=== PATIENT | male | born 1980 | race Caucasian/White ===

== ENCOUNTER 2017-12-11 12:26 | Inpatient (IN) | payer BC, OTHER ==
[~2017-12-11] VITALS: Ht 180.3 cm; Wt 113.7 kg
[~2017-12-11 12:26] MED LIST: DOXY100T PO; LORT5TAB PO
[2017-12-11 12:30] VITALS: BP 152/81; PULSE 120; RESP 18; TEMP 101.2; O2SAT 94
[2017-12-11] MEDS ORDERED: AZITHROMYCIN INJ 500 MG in SODIUM CHLOR 0.9% 250 ML INJ 250 ML IV STA (12:41)
[2017-12-11] MEDS ORDERED: cefTRIAXone INJ 2,000 MG in SODIUM CHLORIDE 0.9% INJ 100 ML IV STA (12:41)
[2017-12-11] MEDS ORDERED: RESP: ALBUTEROL 2.5 MG/IPRATROPIUM 0.5 MG NEB (SCH) NEB ONE (12:45)
[2017-12-11] MEDS ORDERED: SODIUM CHLOR 0.9% 1000 ML INJ 1,000 ML IV ONE ×2 (12:45)
[2017-12-11] MEDS ORDERED: ACETAMINOPHEN 500 MG CPLT PO ONE (12:45)
--- NOTE | 2017-12-11 12:48 | PD ---
HPI Chief Complaint: Cold / Flu Symptoms Time Seen by Provider: 12:35 Travel History International Travel<30 days: No Contact w/Intl Traveler<30days: No Traveled to known affect area: No History of Present Illness HPI This 37-year-old male is complaining of cough and congestion. He has been sick for over a week. Last Saturday he went to urgent care center and was told that he likely had the flu. He was given prescription for Tamiflu which he started taking on Saturday. He is finished. He is continued to cough and has been having fever. He is to get better initially but feeling worse. He is short of breath at times she has been coughing up a lot of phlegm and occasional blood. He smokes about a pack a week. He has no history of asthma. He is on no other medications. COUNT INCLUDES THE [facility] Past Medical History Respiratory: Yes (SLEEP APNEA - USES C-PAP QHS) Social History Alcohol Use: Yes (WEEKENDS) Tobacco Use: Yes (3-4 WEEK) Substance Use: No Allergies-Medications (Allergen,Severity, Reaction): Coded Allergies: amoxicillin (Unverified Allergy, Intermediate, RASH, 12/11/17) Reported Meds & Prescriptions Reported Meds & Active Scripts Active Lortab 5/500 (Acetaminophen/Hydrocodone Bitart) 5 Mg/500 Mg Tab 1-2 Tab PO Q6HPRN FOR PAIN Vibramycin (Doxycycline Hyclate) 100 Mg Cap 100 Mg PO BID Review of Systems General / Constitutional: Positive: Fever, Chills Eyes: No: Diploplia, Blurred Vision HENT: No: Headaches Cardiovascular: No: Chest Pain or Discomfort Respiratory: Positive: Cough, Shortness of Breath, Hemoptysis Gastrointestinal: No: Nausea, Vomiting Genitourinary: No: Urgency, Frequency Musculoskeletal: Positive: Myalgias Skin: No Rash, No Itching Neurologic: Positive: Weakness Psychiatric: No: Anxiety Endocrine: No: Heat Intolerance, Cold Intolerance Hematologic/Lymphatic: No: Easy Bruising Physical Exam Narrative GENERAL: Well-developed male. Temp is 101.2. Pulse rate 120. O2 sat 93%. SKIN: Focused skin assessment warm/dry. HEAD: Atraumatic. Normocephalic. EYES: Pupils equal and round. No scleral icterus. No injection or drainage. ENT: No nasal bleeding or discharge. Mucous membranes pink and moist. NECK: Trachea midline. No JVD. CARDIOVASCULAR: Regular rate and rhythm. No murmur appreciated. RESPIRATORY: There are rales at both bases. Occasional wheeze GASTROINTESTINAL: Abdomen soft, non-tender, nondistended. Hepatic and splenic margins not palpable. MUSCULOSKELETAL: No obvious deformities. No clubbing. No cyanosis. No edema. NEUROLOGICAL: Awake and alert. No obvious cranial nerve deficits. Motor grossly within normal limits. Normal speech. PSYCHIATRIC: Appropriate mood and affect; insight and judgment normal. Data Data Last Documented VS Vital Signs Date Time Temp Pulse Resp B/P (MAP) Pulse Ox O2 Delivery O2 Flow Rate FiO2 12/11/17 13:42 110 129/70 (89) 95 12/11/17 12:30 101.2 18 Orders Orders Sepsis Workup Initiated (12/11/17 ) Complete Blood Count With Diff (12/11/17 12:41) Comprehensive Metabolic Panel (12/11/17 12:41) Lactic Acid Sepsis Protocol (12/11/17 12:41) Urinalysis - C+S If Indicated (12/11/17 12:41) Blood Culture (12/11/17 12:41) Chest, Single Ap (12/11/17 12:41) Blood Glucose (12/11/17 12:41) Ecg Monitoring (12/11/17 12:41) Iv Access Insert/Monitor (12/11/17 12:41) Oximetry (12/11/17 12:41) Oxygen Administration (12/11/17 12:41) Ceftriaxone Inj (Rocephin Inj) (12/11/17 12:41) Azithromycin Inj (Zithromax Inj) (12/11/17 12:41) Acetaminophen (Tylenol) (12/11/17 12:45) Sodium Chlor 0.9% 1000 Ml Inj (Ns 1000 M (12/11/17 12:45) Sodium Chlor 0.9% 1000 Ml Inj (Ns 1000 M (12/11/17 12:45) Albuterol-Ipratropium Neb (Duoneb Neb) (12/11/17 12:45) Labs Laboratory Tests Test 12/11/17 13:00 White Blood Count 7.9 TH/MM3 Red Blood Count 4.23 MIL/MM3 Hemoglobin 12.7 GM/DL Hematocrit 37.5 % Mean Corpuscular Volume 88.5 FL Mean Corpuscular Hemoglobin 30.1 PG Mean Corpuscular Hemoglobin Concent 34.0 % Red Cell Distribution Width 12.1 % Platelet Count 112 TH/MM3 Mean Platelet Volume 9.4 FL Neutrophils (%) (Auto) 87.8 % Lymphocytes (%) (Auto) 5.7 % Monocytes (%) (Auto) 4.6 % Eosinophils (%) (Auto) 0.2 % Basophils (%) (Auto) 1.7 % Neutrophils # (Auto) 6.9 TH/MM3 Lymphocytes # (Auto) 0.5 TH/MM3 Monocytes # (Auto) 0.4 TH/MM3 Eosinophils # (Auto) 0.0 TH/MM3 Basophils # (Auto) 0.1 TH/MM3 CBC Comment DIFF FINAL Differential Comment Blood Urea Nitrogen 15 MG/DL Creatinine 1.10 MG/DL Random Glucose 117 MG/DL Total Protein 7.6 GM/DL Albumin 2.7 GM/DL Calcium Level 8.7 MG/DL Alkaline Phosphatase 82 U/L Aspartate Amino Transf (AST/SGOT) 87 U/L Alanine Aminotransferase (ALT/SGPT) 98 U/L Total Bilirubin 1.0 MG/DL Sodium Level 129 MEQ/L Potassium Level 3.9 MEQ/L Chloride Level 96 MEQ/L Carbon Dioxide Level 21.3 MEQ/L Anion Gap 12 MEQ/L Estimat Glomerular Filtration Rate 75 ML/MIN Lactic Acid Level 1.1 mmol/L MDM Medical Decision Making Medical Screen Exam Complete: Yes Emergency Medical Condition: Yes Medical Record Reviewed: Yes Differential Diagnosis Differential includes pneumonia, sepsis, Narrative Course Chest x-ray shows bilateral patchy areas of infiltrate. There are no focal areas of consolidation. Hemoglobin is 12.2 with a white count of 7.7. His serum sodium is 129. O2 sat is 93%. He was given a nebulizer treatment and reports feeling much better after this. His wheezing has improved. Sepsis Criteria SIRS Criteria (2 or more): Temp > 100.9 or < 96.8, Heart rate over 90 Sepsis Criteria (SIRS+source): Infect source susp/known Criteria Outcome: Meets sepsis criteria Diagnosis Primary Impression: Pneumonia Additional Impression: Sepsis Seferino Anderson MD Dec 11, 2017 12:48
[2017-12-11 13:11] VITALS: O2SAT 94
[2017-12-11 13:19] LABS: AUTOMATED NEUTROPHIL # 6.9 TH/MM3 (1.8-7.7); BASOPHIL # 0.1 TH/MM3 (0-0.2); BASOPHIL % 1.7 % (0.0-2.0); EOSINOPHIL % 0.2 % (0.0-4.0); HEMATOCRIT 37.5 % (39.0-51.0); HEMOGLOBIN 12.7 GM/DL (13.0-17.0); LYMPH % 5.7 % (9.0-44.0); LYMPHOCYTE # 0.5 TH/MM3 (1.0-4.8); MEAN CELL VOLUME 88.5 FL (80.0-100.0); MEAN CORPUSCULAR HEMOGLOBIN 30.1 PG (27.0-34.0); MEAN PLATELET VOLUME 9.4 FL (7.0-11.0); MONO % 4.6 % (0.0-8.0); MONOCYTE # 0.4 TH/MM3 (0-0.9); NEUT % 87.8 % (16.0-70.0); PLATELET COUNT 112 TH/MM3 (150-450); RED BLOOD COUNT 4.23 MIL/MM3 (4.50-5.90); RED CELL DISTRIBUTION WIDTH 12.1 % (11.6-17.2); WHITE BLOOD COUNT 7.9 TH/MM3 (4.0-11.0)
[2017-12-11 13:27] LABS: CHLORIDE 96 MEQ/L (98-107); SODIUM (NA) 129 MEQ/L (136-145)
[2017-12-11 13:31] LABS: ALBUMIN 2.7 GM/DL (3.4-5.0); BICARBONATE 21.3 MEQ/L (21.0-32.0); CALCIUM 8.7 MG/DL (8.5-10.1); GLUCOSE,RANDOM 117 MG/DL (74-106)
[2017-12-11 13:32] LABS: BLOOD UREA NITROGEN 15 MG/DL (7-18)
[2017-12-11 13:34] LABS: ALT (GPT) 98 U/L (12-78); AST (GOT) 87 U/L (15-37)
[2017-12-11 13:35] LABS: GLOMERULAR FILTRATION RATE 75 ML/MIN (>89)
[2017-12-11 13:36] LABS: TOTAL PROTEIN 7.6 GM/DL (6.4-8.2)
[2017-12-11 13:37] LABS: ALKALINE PHOSPHATASE 82 U/L (45-117)
--- NOTE | 2017-12-11 13:38 | RADRPT ---
EXAM DATE/TIME: 12/11/2017 13:16 [facility] COMPARISON: No previous studies available for comparison. INDICATIONS : Cough MEDICAL HISTORY : None. SURGICAL HISTORY : None. ENCOUNTER: Initial ACUITY: 2 days PAIN SCORE: 0/10 LOCATION: Bilateral chest FINDINGS: There are bilateral patchy areas of non-consolidative infiltrate involving the mid and upper lungs bi laterally and the right lower lung. The largest area of opacity is in the left upper lung. No focal areas of consolidation. Both hemidiaphragms and both heart borders are well delineated. CONCLUSION: Multifocal bilateral non-consolidative air space infiltrates. Hunter Ordonez MD on December 11, 2017 at 13:35 Board Certified Radiologist. This report was verified electronically.
[2017-12-11 13:42] VITALS: BP 129/70; PULSE 110; TEMP 100.2; O2SAT 95
[2017-12-11] MEDS ORDERED: BISACODYL 10 MG SUPP RECTAL PRN (14:00)
[2017-12-11] MEDS ORDERED: SODIUM CHLORIDE 0.9% FLUSH 10 ML FLUSH IV FLUSH PRN (14:00)
[2017-12-11] MEDS ORDERED: MAGNESIUM HYDROXIDE SUSP 30 ML CUP PO PRN (14:00)
[2017-12-11] MEDS ORDERED: NALOXONE HCL 0.4 MG/ML AMP IV PUSH PRN (14:00)
[2017-12-11] MEDS ORDERED: SENNOSIDES 8.6 MG TAB PO PRN (14:00)
[2017-12-11] MEDS ORDERED: ONDANSETRON HCL 4 MG/2 ML VIAL IVP PRN (14:00)
[2017-12-11 14:46] VITALS: O2SAT 95
--- NOTE | 2017-12-11 14:49 | HHI.HP ---
HPI Service [facility] Primary Care Physician No Primary Care Physician Admission Diagnosis PNEUMONIA Diagnoses: (1) Pneumonia (2) Sepsis Chief Complaint: Generalized weakness, subjective fever, diarrhea Travel History International Travel<30 Days: No Contact w/Intl Traveler <30 Da: No Traveled to Known Affected Are: No Sepsis Criteria SIRS Criteria (2 or more): Temp > 100.9 or < 96.8, Heart rate over 90 Sepsis Criteria (SIRS+source): Infect source susp/known Criteria Outcome: Meets sepsis criteria History of Present Illness This is a 37-year-old male patient with a known medical history of sleep apnea presented to the ED with complaints of worsening generalized weakness, coughing , subjective fever and diarrhea. Patient states that roughly a week ago he went to the urgent care and was diagnosed with the flu and given Tamiflu, although the patient states they did not actually test for the flu at the time. Patient finished his Tamiflu this morning. He states that his symptoms have just worsened with no improvement. Patient presented with fever of 101. He does also complain of dyspnea, productive cough with occasional blood and diarrhea. Does admit to smoking 1 pack of cigarettes per week. Has a history of sleep apnea but does not use his CPAP machine. Review of Systems Constitutional: COMPLAINS OF: Fatigue, Fever, Chills Eyes: DENIES: Blurred vision, Diplopia Respiratory: COMPLAINS OF: Cough, Sputum production, Shortness of breath Cardiovascular: DENIES: Chest pain, Palpitations Gastrointestinal: COMPLAINS OF: Diarrhea, Nausea, DENIES: Abdominal pain, Black stools, Bloody stools, Constipation, Vomiting Musculoskeletal: COMPLAINS OF: Muscle aches Except as stated in HPI: all other systems reviewed are Neg Past Family Social History Past Medical History Sleep apnea with home CPAP machine Tobacco abuse Past Surgical History Denies any prior surgeries. Reported Medications Does not take any medication. Allergies: Coded Allergies: amoxicillin (Unverified Allergy, Intermediate, RASH, 12/11/17) Active Ordered Medications Current Medications Medications (Trade) Dose Ordered Sig/Dashawn Route Start Time Stop Time Status Last Admin Sodium Chloride 1,000 ml @ 100 mls/hr Q10H IV 12/11/17 14:00 (NS Flush) 2 ml UNSCH PRN IV FLUSH 12/11/17 14:00 (NS Flush) 2 ml BID IV FLUSH 12/11/17 21:00 (Tylenol) 650 mg Q4H PRN PO 12/11/17 14:00 (Zofran Inj) 4 mg Q6H PRN IVP 12/11/17 14:00 (Narcan Inj) 0.4 mg UNSCH PRN IV PUSH 12/11/17 14:00 (Vandana-Colace) 1 tab BID PO 12/11/17 21:00 (Milk Of Magnesia Liq) 30 ml Q12H PRN PO 12/11/17 14:00 (Senokot) 17.2 mg Q12H PRN PO 12/11/17 14:00 (Dulcolax Supp) 10 mg DAILY PRN RECTAL 12/11/17 14:00 Ceftriaxone Sodium 1000 mg/ Sodium Chloride 100 ml @ 200 mls/hr Q24H IV 12/12/17 13:00 Azithromycin 500 mg/Sodium Chloride 250 ml @ 250 mls/hr Q24H IV 12/12/17 14:00 Family History Family history significant for stroke and diabetes and cardiovascular disease on father's side. Maternal medical history significant for breast cancer and ovarian cancer. Social History Patient admits to smoking 1 pack of cigarettes per week, does admit to alcohol use on the weekends. Denies any illicit drug use. Physical Exam Vital Signs Vital Signs Date Time Temp Pulse Resp B/P (MAP) Pulse Ox O2 Delivery O2 Flow Rate FiO2 12/11/17 13:42 100.2 110 129/70 (89) 95 12/11/17 13:11 94 12/11/17 12:30 101.2 120 18 152/81 (104) 94 Physical Exam GENERAL: Well-developed, obese male patient in [facility]. SKIN: Warm and dry. No rash. Diaphoretic HEAD: Normocephalic. Atraumatic. EYES: Pupils equal and round. No scleral icterus. No injection or drainage. ENT: No nasal bleeding or discharge. Mucous membranes pink and moist. NECK: Supple. Trachea midline. CARDIOVASCULAR: Regular rate and rhythm. S1, S2 noted. No murmur appreciated. RESPIRATORY: No accessory muscle use. Clear to auscultation. Breath sounds equal bilaterally. GASTROINTESTINAL: Abdomen soft, non-tender, round. Normoactive bowel sounds x4. MUSCULOSKELETAL: No obvious deformities. Extremities without clubbing, cyanosis , or edema. NEUROLOGICAL: Awake and alert. No obvious cranial nerve deficits. Motor grossly within normal limits. 5/5 muscle strength in bilateral upper and lower extremities. Normal speech. Laboratory Laboratory Tests Test 12/11/17 13:00 White Blood Count 7.9 Red Blood Count 4.23 Hemoglobin 12.7 Hematocrit 37.5 Mean Corpuscular Volume 88.5 Mean Corpuscular Hemoglobin 30.1 Mean Corpuscular Hemoglobin Concent 34.0 Red Cell Distribution Width 12.1 Platelet Count 112 Mean Platelet Volume 9.4 Neutrophils (%) (Auto) 87.8 Lymphocytes (%) (Auto) 5.7 Monocytes (%) (Auto) 4.6 Eosinophils (%) (Auto) 0.2 Basophils (%) (Auto) 1.7 Neutrophils # (Auto) 6.9 Lymphocytes # (Auto) 0.5 Monocytes # (Auto) 0.4 Eosinophils # (Auto) 0.0 Basophils # (Auto) 0.1 CBC Comment DIFF FINAL Differential Comment Blood Urea Nitrogen 15 Creatinine 1.10 Random Glucose 117 Total Protein 7.6 Albumin 2.7 Calcium Level 8.7 Alkaline Phosphatase 82 Aspartate Amino Transf (AST/SGOT) 87 Alanine Aminotransferase (ALT/SGPT) 98 Total Bilirubin 1.0 Sodium Level 129 Potassium Level 3.9 Chloride Level 96 Carbon Dioxide Level 21.3 Anion Gap 12 Estimat Glomerular Filtration Rate 75 Lactic Acid Level 1.1 Date/Time Source Procedure Growth Status 12/11/17 13:08 Blood Peripheral Aerobic Blood Culture Pending Received 12/11/17 13:08 Blood Peripheral Anaerobic Blood Culture Pending Received Result Diagram: 12/11/17 1300 12/11/17 1300 Imaging Last Impressions Chest X-Ray 12/11/17 1241 Signed Impressions: Service Date/Time: Monday, December 11, 2017 13:16 - CONCLUSION: Multifocal bilateral non-consolidative air space infiltrates. Hunter Ordonez MD Septic Shock Reassessment Septic shock perfusion: reassessment completed Caprini VTE Risk Assessment Caprini VTE Risk Assessment: No/Low Risk (score <= 1) Caprini Risk Assessment Model Point Value = 1 Point Value = 2 Point Value = 3 Point Value = 5 Age 41-60 Minor surgery BMI > 25 kg/m2 Swollen legs Varicose veins or History of unexplained or recurrent spontaneous Oral contraceptives or hormone replacement Sepsis (< 1 month) Serious lung disease, including pneumonia (< 1 month) Abnormal pulmonary function Acute myocardial infarction Congestive heart failure (< 1 month) History of inflammatory bowel disease Medical patient at bed rest Age 61-74 Arthroscopic surgery Major open surgery (> 45 min) Laparoscopic surgery (> 45 min) Malignancy Confined to bed (> 72 hours) Immobilizing plaster cast Central venous access Age >= 75 History of VTE Family history of VTE Factor V Leiden Prothrombin [id number] Lupus anticoagulant Anticardiolipin antibodies Elevated serum homocysteine Heparin-induced thrombocytopenia Other congenital or acquired thrombophilia Stroke (< 1 month) Elective arthroplasty Hip, pelvis, or leg fracture Acute spinal cord injury (< 1 month) Prophylaxis Regimen Total Risk Factor Score Risk Level Prophylaxis Regimen 0-1 Low Early ambulation 2 Moderate Order ONE of the following: *Sequential Compression Device (SCD) *Heparin 5000 units SQ BID 3-4 Higher Order ONE of the following medications: *Heparin 5000 units SQ TID *Enoxaparin/Lovenox 40 mg SQ daily (WT < 150 kg, CrCl > 30 mL/min) *Enoxaparin/Lovenox 30 mg SQ daily (WT < 150 kg, CrCl > 10-29 mL/min) *Enoxaparin/Lovenox 30 mg SQ BID (WT < 150 kg, CrCl > 30 mL/min) AND/OR *Sequential Compression Device (SCD) 5 or more Highest Order ONE of the following medications: *Heparin 5000 units SQ TID (Preferred with Epidurals) *Enoxaparin/Lovenox 40 mg SQ daily (WT < 150 kg, CrCl > 30 mL/min) *Enoxaparin/Lovenox 30 mg SQ daily (WT < 150 kg, CrCl > 10-29 mL/min) *Enoxaparin/Lovenox 30 mg SQ BID (WT < 150 kg, CrCl > 30 mL/min) AND *Sequential Compression Device (SCD) Assessment and Plan Problem List: (1) Pneumonia ICD Code: J18.9 - Pneumonia, unspecified organism Status: Acute (2) Sepsis ICD Code: A41.9 - Sepsis, unspecified organism Status: Acute Assessment and Plan This is a 37-year-old male patient with a known medical history of sleep apnea presented to the ED with complaints of worsening generalized weakness, coughing , subjective fever and diarrhea. Community-acquired pneumonia with possible influenza, failed outpatient therapy with Tamiflu - Meet sepsis criteria with fever, tachycardia and source with possible pneumonia. Temperature 101.2 upon presentation. Patient is tachycardic. White blood cell 7.9, although there is a left shift. Blood cultures drawn and pending, follow. Influenza swab ordered, pending. - Patient finished course of Tamiflu this morning. - Placed on azithromycin and ceftriaxone in ED, will continue. Given 2 L NS bolus in ED. Ensure hydration, continue IV fluids. Encourage p.o. intake as tolerated. Zofran available as needed for nausea or vomiting. - Chest x-ray reviewed showing multifocal bilateral non-consolidative airspace infiltrates. - Supportive care. Supplemental O2 as needed. Hyponatremia: Na 129 upon presentation. Will follow BMP. Should improve after IV hydration. This is suspect secondary to poor p.o. intake. Continue to follow. DVT prophylaxis: SCDs. Problem Qualifiers (1) Pneumonia: Tabatha Morfin Dec 11, 2017 14:49
[2017-12-11 15:12] LABS: BILIRUBIN, URINE NEG (NEG); BLOOD, URINE MOD (NEG); GLUCOSE,URINE NEG (NEG); KETONE, URINE NEG (NEG); NITRITE,URINE NEG (NEG); PH, URINE 5.5 (5.0-8.5); URINE COLOR YELLOW (YELLW/STRAW); URINE LEUKOCYTE ESTERASE NEG (NEG)
[2017-12-11 15:25] LABS: WBC, URINE 0-2 /hpf (0-5)
[2017-12-11 15:26] LABS: AMORPHOUS SEDIMENT, URINE FEW; SQUAMOUS EPITHELIAL CELL URINE 0-5 /hpf (0-5); TRANSITIONAL EPI CELLS, URINE 0-5 /hpf
[2017-12-11] MEDS: ACETAMINOPHEN 325 MG TAB PO PRN ×2 (18:32→22:42)
[2017-12-11 20:00] VITALS: BP 118/77; PULSE 98; RESP 20; TEMP 101.1; O2SAT 96
[2017-12-11 20:45] VITALS: O2SAT 95
[2017-12-11] MEDS: DOCUSATE SODIUM 50 MG/SENNA 8.6 MG TAB PO SCH (21:00)
[2017-12-11] MEDS: SODIUM CHLORIDE 0.9% FLUSH 10 ML FLUSH IV FLUSH SCH (21:00)
[2017-12-12] VITALS (8 sets, daily range): BP systolic 113–131; BP diastolic 64–80; PULSE 92–111; RESP 15–20; TEMP 99–102.5; O2SAT 94–97
[2017-12-12 06:44] LABS: AUTOMATED NEUTROPHIL # 4.8 TH/MM3 (1.8-7.7); BASOPHIL % 0.2 % (0.0-2.0); EOSINOPHIL # 0.1 TH/MM3 (0-0.4); EOSINOPHIL % 2.3 % (0.0-4.0); HEMATOCRIT 33.7 % (39.0-51.0); HEMOGLOBIN 11.5 GM/DL (13.0-17.0); LYMPH % 12.8 % (9.0-44.0); LYMPHOCYTE # 0.8 TH/MM3 (1.0-4.8); MEAN CELL VOLUME 89.2 FL (80.0-100.0); MEAN CORPUSCULAR HEMOGLOBIN 30.4 PG (27.0-34.0); MEAN CORPUSCULAR HGB CONC 34.1 % (32.0-36.0); MEAN PLATELET VOLUME 9.5 FL (7.0-11.0); MONOCYTE # 0.4 TH/MM3 (0-0.9); NEUT % 77.7 % (16.0-70.0); PLATELET COUNT 122 TH/MM3 (150-450); RED BLOOD COUNT 3.77 MIL/MM3 (4.50-5.90); RED CELL DISTRIBUTION WIDTH 12.4 % (11.6-17.2); WHITE BLOOD COUNT 6.2 TH/MM3 (4.0-11.0)
[2017-12-12 06:55] LABS: CALCIUM 8.3 MG/DL (8.5-10.1)
[2017-12-12 06:56] LABS: BICARBONATE 24.2 MEQ/L (21.0-32.0)
[2017-12-12 06:59] LABS: CREATININE 0.82 MG/DL (0.60-1.30)
[2017-12-12] MEDS ORDERED: guaiFENesin/CODEINE SYRUP 200 MG/20 MG/10 ML CUP PO PRN (08:00)
--- NOTE | 2017-12-12 08:05 | HHI.PR ---
Subjective Remarks Follow-up sepsis and pneumonia. Patient seen and examined, sitting on side of bed comfortably. Patient has been febrile all night. TMAX 102.5. Patient has been tolerating p.o. intake, denies any abdominal pain, nausea or vomiting. Influenza negative, rotavirus negative, C. difficile negative, awaiting blood cultures still pending. Patient still complains of cough, does state he has had some blood-tinged sputum. Objective Vitals Vital Signs Date Time Temp Pulse Resp B/P (MAP) Pulse Ox O2 Delivery O2 Flow Rate FiO2 12/12/17 04:00 101.0 96 20 126/80 (95) 95 12/12/17 00:00 102.5 111 20 129/80 (96) 97 12/11/17 20:45 95 21 12/11/17 20:00 101.1 98 20 118/77 (91) 96 12/11/17 14:54 12/11/17 14:46 95 21 12/11/17 13:42 100.2 110 129/70 (89) 95 12/11/17 13:11 94 12/11/17 12:30 101.2 120 18 152/81 (104) 94 I/O 12/11/17 12/11/17 12/11/17 12/12/17 12/12/17 12/12/17 07:00 15:00 23:00 07:00 15:00 23:00 Intake Total 2350 ml 2500 ml Balance 2350 ml 2500 ml Intake Oral 2500 ml IV Total 2350 ml # Voids 5 # Bowel Movements 1 Result Diagram: 12/12/17 0506 12/12/17 0506 Imaging Last Impressions Chest X-Ray 12/11/17 1241 Signed Impressions: Service Date/Time: Monday, December 11, 2017 13:16 - CONCLUSION: Multifocal bilateral non-consolidative air space infiltrates. Hunter Ordonez MD Objective Remarks GENERAL: Well-developed, well-nourished patient in [facility]. SKIN: Warm and dry. No rash. HEAD: Normocephalic. Atraumatic. EYES: Pupils equal and round. No scleral icterus. No injection or drainage. ENT: No nasal bleeding or discharge. Mucous membranes pink and moist. NECK: Supple. Trachea midline. CARDIOVASCULAR: Regular rate and rhythm. S1, S2 noted. No murmur appreciated. RESPIRATORY: No accessory muscle use. Diminished breath sounds, breath sounds equal bilaterally. GASTROINTESTINAL: Abdomen soft, non-tender, nondistended. Normoactive bowel sounds x4. MUSCULOSKELETAL: No obvious deformities. Extremities without clubbing, cyanosis , or edema. NEUROLOGICAL: Awake and alert. No obvious cranial nerve deficits. Motor grossly within normal limits. 5/5 muscle strength in bilateral upper and lower extremities. Normal speech. PSYCHIATRIC: Appropriate mood and affect; insight and judgment normal. A/P Problem List: (1) Pneumonia ICD Code: J18.9 - Pneumonia, unspecified organism Status: Acute (2) Sepsis ICD Code: A41.9 - Sepsis, unspecified organism Status: Acute Assessment and Plan This is a 37-year-old male patient with a known medical history of sleep apnea presented to the ED with complaints of worsening generalized weakness, coughing , subjective fever and diarrhea. Community-acquired pneumonia Recent influenza, completed therapy with Tamiflu - Meet sepsis criteria with fever, tachycardia and source with possible pneumonia. Temperature 101.2 upon presentation. Continued fever overnight, 102.5. Patient is tachycardic. White blood cell 7.9, although there is a left shift. Blood cultures negative to date, continue to follow. Influenza negative. C. difficile negative. Finished course of Tamiflu prior to presentation to ED. - Placed on azithromycin and ceftriaxone in ED, will continue. Given 2 L NS bolus in ED. Ensure hydration, continue IV fluids. Encourage p.o. intake as tolerated. Zofran available as needed for nausea or vomiting. - Chest x-ray reviewed showing multifocal bilateral non-consolidative airspace infiltrates. Duo nebs every 6h. - Will obtain chest CT and sputum cultures. Abdominal/pelvis CT reviewed showing bilateral perihilar pneumonia with nonspecific mediastinal adenopathy. Recommendations for follow up CT scan in the future to ensure clearing. Patient updated. Continue treatment. - Supportive care. Supplemental O2 as needed. Comfortable on RA at this time. Hyponatremia: Na 129 upon presentation now 133. Will follow BMP. Should improve after IV hydration. This is suspect secondary to poor p.o. intake. Patient is tolerating PO intake now. Continue to follow. DVT prophylaxis: SCDs. Problem Qualifiers (1) Pneumonia: Tabatha Morfin Dec 12, 2017 08:05
[2017-12-12] MEDS: RESP: ALBUTEROL 2.5 MG/IPRATROPIUM 0.5 MG NEB (SCH) NEB ×3 (08:14→20:23)
[2017-12-12] MEDS: DOCUSATE SODIUM 50 MG/SENNA 8.6 MG TAB PO SCH ×2 (09:00→23:07)
[2017-12-12] MEDS: SODIUM CHLORIDE 0.9% FLUSH 10 ML FLUSH IV FLUSH SCH ×2 (09:00→23:07)
[2017-12-12] MEDS: SODIUM CHLOR 0.9% 1000 ML INJ 1,000 ML IV SCH ×3 (10:00→23:07)
[2017-12-12] MEDS ORDERED: cefTRIAXone INJ 1,000 MG in SODIUM CHLORIDE 0.9% INJ 100 ML IV SCH (13:00)
--- NOTE | 2017-12-12 13:24 | RADRPT ---
EXAM DATE/TIME: 12/12/2017 10:52 [facility] COMPARISON: CHEST SINGLE AP, December 11, 2017, 13:16. INDICATIONS : Pneumonia. RADIATION DOSE: 22.90 CTDIvol (mGy) MEDICAL HISTORY : None SURGICAL HISTORY : None. ENCOUNTER: Initial ACUITY: 1 week PAIN SCALE: 0/10 LOCATION: Bilateral chest TECHNIQUE: Volumetric scanning of the chest was performed. Using automated exposure control and adjustment of t he mA and/or kV according to patient size, radiation dose was kept as low as reasonably achievable to obtain optimal diagnostic quality images. DICOM format image data is available electronically for r eview and comparison. Follow-up recommendations for detected pulmonary nodules are based at a minimum on nodule size and pa tient risk factors according to Fleischner Society Guidelines. FINDINGS: There is patchy alveolar disease in the right lower lobe, right middle lobe and left upper lobe beto cteristic of edema or pneumonia. No pleural effusions are identified. Coronary artery calcifications are not present. There are slightly enlarged lymph nodes in the anteri or and middle mediastinum as well as in the precarinal region likely reactive in nature. The visualiz ed upper abdomen demonstrates no abnormality. CONCLUSION: Findings of bilateral perihilar pneumonia with nonspecific mediastinal adenopathy. Followup examinati on to insure clearing is recommended. Chaz Burgos MD on December 12, 2017 at 13:14 Board Certified Radiologist. This report was verified electronically.
[2017-12-12] MEDS ORDERED: AZITHROMYCIN INJ 500 MG in SODIUM CHLOR 0.9% 250 ML INJ 250 ML IV SCH (14:00)
[2017-12-13] VITALS: BP 115/66; PULSE 88; RESP 20; TEMP 99.4; O2SAT 95
[2017-12-13] MEDS: SODIUM CHLOR 0.9% 1000 ML INJ 1,000 ML IV SCH (06:00)
[2017-12-13] MEDS: RESP: ALBUTEROL 2.5 MG/IPRATROPIUM 0.5 MG NEB (SCH) NEB (07:25)
[2017-12-13 08:00] VITALS: BP 128/69; PULSE 91; RESP 14; TEMP 97.9; O2SAT 94
[2017-12-13 08:54] LABS: AUTOMATED NEUTROPHIL # 3.4 TH/MM3 (1.8-7.7); BASOPHIL % 0.1 % (0.0-2.0); EOSINOPHIL # 0.2 TH/MM3 (0-0.4); EOSINOPHIL % 5.1 % (0.0-4.0); HEMATOCRIT 32.7 % (39.0-51.0); HEMOGLOBIN 11.3 GM/DL (13.0-17.0); LYMPH % 18.8 % (9.0-44.0); LYMPHOCYTE # 0.9 TH/MM3 (1.0-4.8); MEAN CELL VOLUME 89.3 FL (80.0-100.0); MEAN CORPUSCULAR HEMOGLOBIN 30.9 PG (27.0-34.0); MEAN CORPUSCULAR HGB CONC 34.5 % (32.0-36.0); MEAN PLATELET VOLUME 8.7 FL (7.0-11.0); MONO % 6.4 % (0.0-8.0); MONOCYTE # 0.3 TH/MM3 (0-0.9); NEUT % 69.6 % (16.0-70.0); PLATELET COUNT 153 TH/MM3 (150-450); RED BLOOD COUNT 3.66 MIL/MM3 (4.50-5.90); RED CELL DISTRIBUTION WIDTH 12.7 % (11.6-17.2); WHITE BLOOD COUNT 4.8 TH/MM3 (4.0-11.0)
[2017-12-13 09:16] LABS: CALCIUM 8.5 MG/DL (8.5-10.1)
[2017-12-13 09:17] LABS: BICARBONATE 24.8 MEQ/L (21.0-32.0)
[2017-12-13 09:20] LABS: CREATININE 0.74 MG/DL (0.60-1.30)
--- NOTE | 2017-12-13 09:21 | HHI.PR ---
Subjective Remarks Follow-up sepsis secondary to pneumonia. Patient seen and examined, sitting in chair comfortably. States he feels much improved, denies any further generalized aching. Has been ambulating to the bathroom without any distress or dyspnea. Patient has been eating well, tolerating p.o. intake. Denies any nausea or vomiting. Diarrhea has slowed up. Denies any pain. Objective Vitals Vital Signs Date Time Temp Pulse Resp B/P (MAP) Pulse Ox O2 Delivery O2 Flow Rate FiO2 12/13/17 00:00 99.4 88 20 115/66 (82) 95 12/12/17 20:25 96 21 12/12/17 20:00 99.8 96 20 120/67 (84) 94 12/12/17 16:00 99.8 101 15 113/64 (80) 95 12/12/17 12:00 99.0 92 18 126/70 (88) 96 I/O 12/12/17 12/12/17 12/12/17 12/13/17 12/13/17 12/13/17 07:00 15:00 23:00 07:00 15:00 23:00 Intake Total 2500 ml 350 ml 1148 ml Output Total 350 ml Balance 2500 ml 350 ml 798 ml Intake Oral 2500 ml 480 ml IV Total 350 ml 668 ml Output Urine Total 350 ml # Voids 5 # Bowel Movements 1 1 Result Diagram: 12/13/17 0830 12/13/17 0830 Imaging Last Impressions Chest CT 12/12/17 0000 Signed Impressions: Service Date/Time: December 10:52 - CONCLUSION: Findings of bilateral perihilar pneumonia with nonspecific mediastinal adenopathy. Followup examination to insure clearing is recommended. Chaz Burgos MD Chest X-Ray 12/11/17 1241 Signed Impressions: Service Date/Time: Monday, December 11, 2017 13:16 - CONCLUSION: Multifocal bilateral non-consolidative air space infiltrates. Hunter Ordonez MD Objective Remarks GENERAL: Well-developed, well-nourished patient in [facility]. SKIN: Warm and dry. No rash. HEAD: Normocephalic. Atraumatic. EYES: Pupils equal and round. No scleral icterus. No injection or drainage. ENT: No nasal bleeding or discharge. Mucous membranes pink and moist. NECK: Supple. Trachea midline. CARDIOVASCULAR: Regular rate and rhythm. S1, S2 noted. No murmur appreciated. RESPIRATORY: No accessory muscle use. Clear breath sounds, breath sounds equal bilaterally. GASTROINTESTINAL: Abdomen soft, non-tender, nondistended. Normoactive bowel sounds x4. MUSCULOSKELETAL: No obvious deformities. Extremities without clubbing, cyanosis , or edema. NEUROLOGICAL: Awake and alert. No obvious cranial nerve deficits. Motor grossly within normal limits. 5/5 muscle strength in bilateral upper and lower extremities. Normal speech. PSYCHIATRIC: Appropriate mood and affect; insight and judgment normal. A/P Problem List: (1) Pneumonia ICD Code: J18.9 - Pneumonia, unspecified organism Status: Acute (2) Sepsis ICD Code: A41.9 - Sepsis, unspecified organism Status: Acute Assessment and Plan This is a 37-year-old male patient with a known medical history of sleep apnea presented to the ED with complaints of worsening generalized weakness, coughing , subjective fever and diarrhea. Community-acquired pneumonia Recent influenza, completed therapy with Tamiflu - Meet sepsis criteria with fever, tachycardia and source with possible pneumonia. Temperature 101.2 upon presentation. TMAX 99.8 overnight. Patient is tachycardic. No leukocytosis. Blood cultures negative to date, continue to follow. Influenza negative. C. difficile negative. Finished course of Tamiflu prior to presentation to ED. - Placed on azithromycin and ceftriaxone in ED, will continue. Given 2 L NS bolus in ED. patient is tolerating p.o. intake well, will DC IV fluid. Zofran available as needed for nausea or vomiting. - Chest x-ray reviewed showing multifocal bilateral non-consolidative airspace infiltrates. Duo nebs every 6h. - Abdominal/pelvis CT reviewed showing bilateral perihilar pneumonia with nonspecific mediastinal adenopathy. Recommendations for follow up CT scan in the future to ensure clearing. Patient updated. Continue treatment. Sputum culture pending. - Supportive care. Supplemental O2 as needed. Comfortable on RA at this time. Hyponatremia: Resolved with IV fluid. Na 129 upon presentation now 137. DVT prophylaxis: SCDs. Discharge Planning Will discharge later today. Problem Qualifiers (1) Pneumonia: Tabatha Morfin Dec 13, 2017 09:21
--- NOTE | 2017-12-13 09:41 | HHI.DS ---
Discharge Summary Admission Date Dec 12, 2017 at 10:23 Discharge Date: Dec 13, 2017 Admitting Diagnosis PNEUMONIA (1) Pneumonia ICD Code: J18.9 - Pneumonia, unspecified organism Status: Acute (2) Sepsis ICD Code: A41.9 - Sepsis, unspecified organism Status: Acute Procedures Please see below. Brief History - From Admission This is a 37-year-old male patient with a known medical history of sleep apnea presented to the ED with complaints of worsening generalized weakness, coughing , subjective fever and diarrhea. Patient states that roughly a week ago he went to the urgent care and was diagnosed with the flu and given Tamiflu, although the patient states they did not actually test for the flu at the time. Patient finished his Tamiflu this morning. He states that his symptoms have just worsened with no improvement. Patient presented with fever of 101. He does also complain of dyspnea, productive cough with occasional blood and diarrhea. Does admit to smoking 1 pack of cigarettes per week. Has a history of sleep apnea but does not use his CPAP machine. CBC/BMP: 12/13/17 0830 12/13/17 0830 Significant Findings Laboratory Tests Test 12/11/17 13:00 12/11/17 15:00 12/11/17 16:20 12/12/17 05:06 Red Blood Count 4.23 MIL/MM3 (4.50-5.90) 3.77 MIL/MM3 (4.50-5.90) Hemoglobin 12.7 GM/DL (13.0-17.0) 11.5 GM/DL (13.0-17.0) Hematocrit 37.5 % (39.0-51.0) 33.7 % (39.0-51.0) Platelet Count 112 TH/MM3 (150-450) 122 TH/MM3 (150-450) Neutrophils (%) (Auto) 87.8 % (16.0-70.0) 77.7 % (16.0-70.0) Lymphocytes (%) (Auto) 5.7 % (9.0-44.0) Lymphocytes # (Auto) 0.5 TH/MM3 (1.0-4.8) 0.8 TH/MM3 (1.0-4.8) Random Glucose 117 MG/DL (74-106) Albumin 2.7 GM/DL (3.4-5.0) Aspartate Amino Transf (AST/SGOT) 87 U/L (15-37) Alanine Aminotransferase (ALT/SGPT) 98 U/L (12-78) Sodium Level 129 MEQ/L (136-145) 133 MEQ/L (136-145) Chloride Level 96 MEQ/L (98-107) Estimat Glomerular Filtration Rate 75 ML/MIN (>89) Urine Protein 100 mg/dL (NEG-TRACE) Urine Occult Blood MOD (NEG) Urine RBC 10-14 /hpf (0-3) Calcium Level 8.3 MG/DL (8.5-10.1) Test 12/13/17 08:30 Red Blood Count 3.66 MIL/MM3 (4.50-5.90) Hemoglobin 11.3 GM/DL (13.0-17.0) Hematocrit 32.7 % (39.0-51.0) Eosinophils (%) (Auto) 5.1 % (0.0-4.0) Lymphocytes # (Auto) 0.9 TH/MM3 (1.0-4.8) Random Glucose 142 MG/DL (74-106) Potassium Level 3.4 MEQ/L (3.5-5.1) Imaging Last Impressions Chest CT 12/12/17 0000 Signed Impressions: Service Date/Time: December 10:52 - CONCLUSION: Findings of bilateral perihilar pneumonia with nonspecific mediastinal adenopathy. Followup examination to insure clearing is recommended. Chaz Burgos MD Chest X-Ray 12/11/17 1241 Signed Impressions: Service Date/Time: Monday, December 11, 2017 13:16 - CONCLUSION: Multifocal bilateral non-consolidative air space infiltrates. Hunter Ordonez MD PE at Discharge GENERAL: Well-developed, well-nourished patient in [facility]. SKIN: Warm and dry. No rash. HEAD: Normocephalic. Atraumatic. EYES: Pupils equal and round. No scleral icterus. No injection or drainage. ENT: No nasal bleeding or discharge. Mucous membranes pink and moist. NECK: Supple. Trachea midline. CARDIOVASCULAR: Regular rate and rhythm. S1, S2 noted. No murmur appreciated. RESPIRATORY: No accessory muscle use. Clear breath sounds, breath sounds equal bilaterally. GASTROINTESTINAL: Abdomen soft, non-tender, nondistended. Normoactive bowel sounds x4. MUSCULOSKELETAL: No obvious deformities. Extremities without clubbing, cyanosis , or edema. NEUROLOGICAL: Awake and alert. No obvious cranial nerve deficits. Motor grossly within normal limits. 5/5 muscle strength in bilateral upper and lower extremities. Normal speech. PSYCHIATRIC: Appropriate mood and affect; insight and judgment normal. Pt update on day of discharge Follow-up sepsis secondary to pneumonia. Patient seen and examined, sitting in chair comfortably. States he feels much improved, denies any further generalized aching. Has been ambulating to the bathroom without any distress or dyspnea. Patient has been eating well, tolerating p.o. intake. Denies any nausea or vomiting. Diarrhea has slowed up. Denies any pain. Hospital Course This is a 37-year-old male patient with a known medical history of sleep apnea presented to the ED with complaints of worsening generalized weakness, coughing , subjective fever and diarrhea. Presented with community-acquired pneumonia Met sepsis criteria with fever, tachycardia and source with possible pneumonia. Temperature 101.2 upon presentation. Tachycardic. No leukocytosis. Blood cultures negative to date. Influenza negative. C. difficile negative. Finished course of Tamiflu prior to presentation to ED. Placed on azithromycin and ceftriaxone IV. Given 2 L NS bolus in ED. Was given IVF. Chest x-ray reviewed showing multifocal bilateral non-consolidative airspace infiltrates. Duo nebs every 6h. Abdominal/pelvis CT reviewed showing bilateral perihilar pneumonia with nonspecific mediastinal adenopathy. Recommendations for follow up CT scan in the future to ensure clearing. Patient updated. Mild hyponatremia, resolved with IV fluid, 129 upon presentation now 137. Stable to be dcd home on PO antibiotics. Patient is much improved and encouraged to follow up with PCP and also obtain follow up CT scan. Pt Condition on Discharge: Good Discharge Disposition: Discharge Home Discharge Time: <= 30 minutes Discharge Instructions DIET: Follow Instructions for: As Tolerated, No Restrictions Speech Therapy-Diet Recommends: Regular Activities you can perform: Regular-No Restrictions Follow up Referrals: PCP Follow-up - 1 Week New Medications: Doxycycline Hyclate (Doxycycline Hyclate) 100 Mg Cap 100 MG PO BID for Infection for 5 Days, #10 CAP 0 Refills [guaiFEN-COD 200-20 MG/10ML LIQ] () 10 ML SYRP 10 ML PO Q6H PRN for cough for 5 Days, #1 BOTTLE Discontinued Medications: Doxycycline Hyclate 100 mg (Doxycycline Hyclate 100 mg) 100 Mg Cap 100 MG PO BID, #20 Hydrocodone-Acetaminophen (Lortab 5/500) 5 Mg/500 Mg Tab 1 - 2 TAB PO Q6HPRN, #20 FOR PAIN Tabatha Morfin Dec 13, 2017 09:41
--- NOTE | 2017-12-13 09:41 | HHI.DCPOC ---
Discharge Care Plan Diagnosis: (1) Pneumonia (2) Sepsis Goals to Promote Your Health * To prevent worsening of your condition and complications * To maintain your health at the optimal level Directions to Meet Your Goals Take your medications as prescribed Follow your dietary instruction Follow activity as directed Keep your appointments as scheduled Take your immunizations and boosters as scheduled If your symptoms worsen call your PCP, if no PCP go to Urgent Care Center or Emergency Room Smoking is Dangerous to Your Health. Avoid second hand smoke Call the 24-hour hour crisis hotline for domestic abuse at Tabatha Morfin Dec 13, 2017 09:41
[2017-12-13] MEDS ORDERED: guaiFEN-COD 200-20 MG/10ML LIQ PO (09:45)
[2017-12-13] MEDS ORDERED: DOXY100C PO (09:45)
[2017-12-13] MEDS ORDERED: POTASSIUM CHLORIDE 20 MEQ CONTROLLED RELEASE TAB PO ONE (10:00)
[2017-12-13] MEDS: DOCUSATE SODIUM 50 MG/SENNA 8.6 MG TAB PO SCH (10:21)
[2017-12-13] MEDS: SODIUM CHLORIDE 0.9% FLUSH 10 ML FLUSH IV FLUSH SCH (10:21)
== END 2017-12-13 11:59 | disposition home or self-care (01) | DRG 871 ==
LOC: PHED 12:26 → PHEDA 14:12 → PH3A 14:53 → OBSVTOIN 12-12 10:23
PROVIDERS: ADMIT Hospitalist; ATTEND Hospitalist
DX: A41.9 Sepsis, unspecified organism (principal); J18.9 Pneumonia, unspecified organism; E87.1 Hypo-osmolality and hyponatremia; R04.2 Hemoptysis; G47.30 Sleep apnea, unspecified; R19.7 Diarrhea, unspecified; F17.210 Nicotine dependence, cigarettes, uncomplicated; R59.0 Localized enlarged lymph nodes
CPT/HCPCS: 71045; 71250; 80048; 80053; 81001; 83605; 85025; 87015; 87040; 87070; 87116; 87205; 87206; 87328; 87329; 87425; 87493; 87506; 87804; 94640; 94664; 99285; G0378; J0456; J0696; J7030; J7050